=== PATIENT | male | born 1985 | race Caucasian/White ===

== ENCOUNTER → 2016-09-10 | Outpatient (CLI) | payer OTHER | LOC: COL.RAD 09:42 | DX: M51.34 Other intervertebral disc degeneration, thoracic region (principal); M51.36 Other intervertebral disc degeneration, lumbar region ==

== ENCOUNTER 2017-01-30 10:00 | Outpatient (RCR) | payer OTHER | END 2017-03-03 | disposition home or self-care (01) | LOC: WSPT | DX: M54.41 Lumbago with sciatica, right side (principal) | CPT/HCPCS: G8978-GP; G8979-GP ==

== ENCOUNTER 2017-03-13 09:15 | Outpatient (RCR) | payer OTHER | END 2017-03-27 09:57 | disposition home or self-care (01) | LOC: WSPT 09:15 | DX: M54.41 Lumbago with sciatica, right side (principal) ==

== ENCOUNTER → 2018-12-16 | Outpatient (CLI) | payer OTHER | LOC: COL.RAD 12-14 14:00 | DX: M46.96 Unspecified inflammatory spondylopathy, lumbar region (principal); M41.86 Other forms of scoliosis, lumbar region; M47.26 Other spondylosis with radiculopathy, lumbar region ==